=== PATIENT | female | born 1995 | race Two or more races ===

== ENCOUNTER 2019-07-04 20:28 | Observation (INO) | payer SELFPAY | END 2019-07-04 22:47 | disposition other institution (70) | DRG 833 | LOC: LDRP 20:28 | PROVIDERS: ADMIT Obstetrics & Gynecology; ATTEND Obstetrics & Gynecology | DX: O26.892 Other specified pregnancy related conditions, second trimester (principal); R10.11 Right upper quadrant pain; Z3A.23 23 weeks gestation of pregnancy | CPT/HCPCS: 59025; 76805; 81002; G0378 ==

== ENCOUNTER 2019-07-04 22:43 | Emergency (ER) | payer MEDICAID ==
[~2019-07-04] VITALS: Ht 154.9 cm; Wt 65.8 kg
[2019-07-05] MEDS ORDERED: SODIUM CHLORIDE 0.9% 1,000 ML IVB ONE (00:45)
[2019-07-05] MEDS ORDERED: HYDROmorphone HCL 2 MG/ML VL IV ONE ×2 (00:45)
[2019-07-05] MEDS ORDERED: ACETAMINOPHEN 325 MG TAB PO ONE ×2 (01:45→06:45)
[2019-07-05 02:01] LABS: Basophils # (auto) 0 uL; Basophils % (auto) 0.1 % (0.0-2.0); Eosinophils # (auto) 0 uL; Hematocrit 35.3 % (36.0-46.0); Hemoglobin 11.8 g/dL (12.2-16.2); Lymphocytes # (auto) 0.8 uL; Lymphocytes % (auto) 4.8 % (10.0-50.0); Mean Corpuscular Hemoglobin 29.8 pg (28.0-32.0); Mean Corpuscular Hgb Conc. 33.3 g/dL (32.0-36.0); Mean Corpuscular Volume 89.4 fL (80.0-100.0); Monocytes # (auto) 0.9 uL; Monocytes % (auto) 4.9 % (0.0-12.0); Neutrophils # (auto) 15.6 uL; Neutrophils % (auto) 90.2 % (37.0-80.0); Platelet Count (auto) 288 10^3/uL (140-450); Red Blood Cells 3.95 10^6/uL (4.0-5.20); Red Cell Distribution Width 13.9 % (11.8-14.3); White Blood Cell 17.3 10^3/uL (4.4-10.8)
[2019-07-05 02:07] LABS: INR < 0.93 (0.9-1.15); Partial Thromboplastin Time 24.2 sec (23.64-32.05)
[2019-07-05 02:13] LABS: Albumin 3.1 g/dL (3.4-5.0); BUN/Creatinine Ratio 12.7; Calcium 8.7 mg/dL (8.5-10.1); Potassium 3.8 mmol/L (3.5-5.1)
[2019-07-05 02:27] LABS: Bilirubin, Total 0.3 mg/dL (0.2-1.0); Total Protein 7.6 g/dL (6.4-8.2)
[2019-07-05 03:14] LABS: Urine Bacteria FEW /hpf (None Seen); Urine Blood Negative /uL (Negative); Urine Mucus FEW (None Seen); Urine Specific Gravity 1.024 (1.001-1.035); Urine WBC 1 /hpf (0 - 5)
[2019-07-05] MEDS ORDERED: metroNIDAZOLE 500MG/100ML 100 ML IV ONE (06:00)
[2019-07-05] MEDS ORDERED: PIPERACILLIN-TAZOB 3.375GM 100 ML IV ONE (06:00)
[2019-07-05] MEDS ORDERED: SODIUM CHLORIDE 0.9% 1,000 ML IV ONE (06:15)
[2019-07-05] MEDS ORDERED: PROMETHAZINE HCL 25 MG/ML 1ML IV ONE ×2 (08:00→15:00)
[2019-07-05] MEDS ORDERED: MORPHINE SULF INJ 2 MG/ML SYRINGE 1ML IV ONE ×2 (08:00→15:00)
[2019-07-05 14:17] LABS: Basophils # (auto) 0 uL; Basophils % (auto) 0.3 % (0.0-2.0); Eosinophils # (auto) 0.1 uL; Eosinophils % (auto) 0.5 % (0.0-7.0); Hematocrit 31.7 % (36.0-46.0); Hemoglobin 10.6 g/dL (12.2-16.2); Lymphocytes # (auto) 1.4 uL; Lymphocytes % (auto) 11.1 % (10.0-50.0); Mean Corpuscular Hemoglobin 30.1 pg (28.0-32.0); Mean Corpuscular Hgb Conc. 33.5 g/dL (32.0-36.0); Mean Corpuscular Volume 89.7 fL (80.0-100.0); Monocytes # (auto) 0.8 uL; Monocytes % (auto) 6.6 % (0.0-12.0); Neutrophils # (auto) 10.4 uL; Neutrophils % (auto) 81.5 % (37.0-80.0); Platelet Count (auto) 268 10^3/uL (140-450); Red Blood Cells 3.53 10^6/uL (4.0-5.20); Red Cell Distribution Width 13.9 % (11.8-14.3); White Blood Cell 12.8 10^3/uL (4.4-10.8)
[2019-07-05 14:29] LABS: BUN/Creatinine Ratio 8.9; Calcium 8.2 mg/dL (8.5-10.1); Potassium 3.5 mmol/L (3.5-5.1)
[2019-07-05 15:45] VITALS: BP 128/73
== END 2019-07-05 15:42 | disposition short-term general hospital (02) ==
LOC: ER 22:48
DX: O21.8 Other vomiting complicating pregnancy (principal); O26.891 Other specified pregnancy related conditions, first trimester; R10.11 Right upper quadrant pain; Z3A.00 Weeks of gestation of pregnancy not specified
CPT/HCPCS: 36415; 74176; 76705; 80048; 80053; 81001; 82150; 83690; 83735; 85025; 85610; 85730; 96361; 96365; 96366; 96368; 96375; 96376; 99285; J2270; J2543; J2550; J3490; J7030

== ENCOUNTER 2021-04-22 00:15 | Emergency (ER) | payer OTHER, MEDICAID ==
[~2021-04-22] VITALS: Ht 154.9 cm; Wt 62.1 kg
[2021-04-22 01:28] LABS: Basophils # (auto) 0 10 ^3/uL (0-0.2); Basophils % (auto) 0.2 % (0.0-2.0); Eosinophils # (auto) 0.1 10 ^3/uL (0-0.8); Eosinophils % (auto) 0.7 % (0.0-7.0); Hematocrit 37.5 % (36.0-46.0); Hemoglobin 12.6 g/dL (12.2-16.2); Lymphocytes # (auto) 1.7 10 ^3/uL (0.4-5.4); Lymphocytes % (auto) 11.2 % (10.0-50.0); Mean Corpuscular Hemoglobin 29.6 pg (28.0-32.0); Mean Corpuscular Hgb Conc. 33.6 g/dL (32.0-36.0); Mean Corpuscular Volume 87.8 fL (80.0-100.0); Monocytes # (auto) 0.9 10 ^3/uL (0-1.3); Monocytes % (auto) 6.1 % (0.0-12.0); Neutrophils # (auto) 12.7 10 ^3/uL (1.6-8.6); Neutrophils % (auto) 81.8 % (37.0-80.0); Platelet Count (auto) 301 10^3/uL (140-450); Red Blood Cells 4.27 10^6/uL (4.0-5.20); Red Cell Distribution Width 13.5 % (11.8-14.3); White Blood Cell 15.5 10^3/uL (4.4-10.8)
[2021-04-22 01:47] LABS: Calcium 9.4 mg/dL (8.5-10.1); Chloride 106 mmol/L (98-107); Sodium 136 mmol/L (136-145)
[2021-04-22 01:50] LABS: Alanine Aminotransferase 14 U/L (13-56); Albumin 3.3 g/dL (3.4-5.0); Anion Gap 11 (5-15); Aspartate Aminotransferase 11 U/L (15-37); BUN/Creatinine Ratio 12.9; Blood Urea Nitrogen 8 mg/dL (7-18); Carbon Dioxide 19 mmol/L (21-32); GFR African American 153 mL/min; GFR Non-African American 127 mL/min; Glucose 122 mg/dL (74-106); Magnesium 1.9 mg/dL (1.6-2.6)
[2021-04-22 01:55] LABS: Alkaline Phosphatase 75 U/L (45-117); Bilirubin, Total 0.3 mg/dL (0.2-1.0); Total Protein 8.5 g/dL (6.4-8.2)
[2021-04-22 02:03] LABS: Thyroid Stimulating Hormone 0.99 uIU/mL (0.358-3.74)
[2021-04-22] MEDS ORDERED: ALUM & MAG HYDROX-SIMETH LIQ(MAALOX) 30 ML PO ONE (02:30)
[2021-04-22] MEDS ORDERED: FAMOTIDINE (10MG/ML) 2ML VL IV ONE (02:30)
[2021-04-22] MEDS ORDERED: LACTATED RINGER'S 1,000 ML IV ONE (04:00)
[2021-04-22] MEDS: POTASSIUM CHL 20MEQ/100ML 100 ML IV SCH ×2 (04:20→06:31)
[2021-04-22 06:03] LABS: Urine WBC None Seen /hpf (0 - 5)
[2021-04-22 06:22] LABS: Urine Amorphous Crystal MANY /hpf (None Seen); Urine Bacteria FEW /hpf (None Seen); Urine Blood Negative /uL (Negative); Urine Mucus FEW (None Seen); Urine Specific Gravity 1.029 (1.001-1.035)
[2021-04-22 06:24] VITALS: BP 102/36
== END 2021-04-22 06:50 | disposition home or self-care (01) ==
LOC: ER 00:15
DX: O99.612 Diseases of the digestive system complicating pregnancy, second trimester (principal); K21.9 Gastro-esophageal reflux disease without esophagitis; R07.89 Other chest pain; E87.6 Hypokalemia; Z3A.21 21 weeks gestation of pregnancy; Z90.89 Acquired absence of other organs
CPT/HCPCS: 36415; 76805; 80053; 81001; 83735; 84443; 84484; 84702; 85025; 85049; 93005; 96365; 96366; 96375; 99285; J3480; J3490